=== PATIENT | female | born 1990 ===

== ENCOUNTER 2017-12-08 09:03 | Emergency (ER) | payer BC, OTHER ==
[2017-12-08 09:04] VITALS: BMI 30.7
[2017-12-08 09:14] VITALS: BP 111/59; RESP 16; TEMP 97; O2SAT 100
--- NOTE | 2017-12-08 10:38 | ED PDOC ---
HPI: CCC, URI, Sore Throat Time Seen by Provider: 12/08/17 09:17 Chief Complaint (Nursing): Chest Pain Chief Complaint (Provider): Cough and Chest Pain History Per: Patient History/Exam Limitations: no limitations Onset/Duration Of Symptoms: Days (x5) Current Symptoms Are (Timing): Still Present Additional Complaint(s): 27 year old female with no significant past medical history, who presents to the ED complaining of a cough productive of clear sputum x5 days. States today she also developed mid-sternal chest pain only with coughing which prompted her to visit the ED. Denies chest pain at rest, hemoptysis, shortness of breath, leg pain, and history of DVT or PE. Also denies hormonal therapy. PMD: Non-[facility] Provider Past Medical History Reviewed: Historical Data, Nursing Documentation, Vital Signs Vital Signs: Last Vital Signs Temp 97.0 F L 12/08/17 09:07 Pulse 91 H 12/08/17 09:07 Resp 16 12/08/17 09:07 BP 111/59 L 12/08/17 09:07 Pulse Ox 100 12/08/17 10:41 - Medical History PMH: Gall Bladder Disease, Pancreatitis Denies: Cardia Arrhythmia, CHF, Emphysema, Chronic Kidney Disease - Surgical History Surgical History: Cholecystectomy, - Family History Family History: States: Unknown Family Hx - Home Medications Home Medications: Ambulatory Orders Medication Instructions Recorded Albuterol HFA [Ventolin HFA 90 2 puff IH [id number] PRN #90 puff 12/08/17 mcg/actuation (8 g)] Azithromycin [Zithromax] 250 mg PO DAILY #6 tab 12/08/17 Promethazine DM [Phenergan DM 5 - 10 ml PO Q8 PRN #120 ml 12/08/17 Syrup] - Allergies Allergies/Adverse Reactions: Allergies Allergy/AdvReac Type Severity Reaction Status Date / Time No Known Allergies Allergy Verified 07/29/14 00:14 Review of Systems ROS Statement: Except As Marked, All Systems Reviewed And Found Negative Cardiovascular: Positive for: Chest Pain (when coughing) Respiratory: Positive for: Cough, Sputum (clear). Negative for: Shortness of Breath, Hemoptysis Musculoskeletal: Negative for: Leg Pain Physical Exam - Reviewed Nursing Documentation Reviewed: Yes Vital Signs Reviewed: Yes - Physical Exam Appears: Positive for: Non-toxic, No Acute Distress Head Exam: Positive for: ATRAUMATIC, NORMAL INSPECTION, NORMOCEPHALIC Skin: Positive for: Normal Color, Warm, Dry. Negative for: Rash Eye Exam: Positive for: EOMI, Normal appearance, PERRL ENT: Positive for: Normal ENT Inspection Cardiovascular/Chest: Positive for: Regular Rate, Rhythm. Negative for: Murmur Respiratory: Positive for: Normal Breath Sounds. Negative for: Respiratory Distress Gastrointestinal/Abdominal: Positive for: Normal Exam, Bowel Sounds, Soft. Negative for: Tenderness Extremity: Negative for: Calf Tenderness (b/l) Neurologic/Psych: Positive for: Alert, Oriented (x3) - ECG ECG: Positive for: Interpreted By Me ECG Rhythm: Positive for: Sinus Rhythm. Negative for: ST/T Changes Rate: 62 O2 Sat by Pulse Oximetry: 100 (RA) Pulse Ox Interpretation: Normal Medical Decision Making Medical Decision Making: Time: 09:55 Initial Plan: --Portable CXR --Reevaluation Scribe Attestation: Documented by Wilson Mendosa, acting as a scribe for Travis Sherwood MD. Provider Scribe Attestation: All medical record entries made by the Scribe were at my direction and personally dictated by me. I have reviewed the chart and agree that the record accurately reflects my personal performance of the history, physical exam, medical decision making, and the department course for this patient. I have also personally directed, reviewed, and agree with the discharge instructions and disposition. Disposition - Clinical Impression Clinical Impression: Acute bronchitis - Patient ED Disposition Is Patient to be Admitted: No - Disposition Disposition: Routine/Home Disposition Time: 10:20 Condition: STABLE Prescriptions: Albuterol HFA [Ventolin HFA 90 mcg/actuation (8 g)] 2 puff IH [id number] PRN #90 puff PRN Reason: Cough Azithromycin [Zithromax] 250 mg PO DAILY #6 tab Promethazine DM [Phenergan DM Syrup] 5 - 10 ml PO Q8 PRN #120 ml PRN Reason: Cough Instructions: Acute Bronchitis (ED) Forms: [facility] ([place]), [facility] ED School/Work Excuse
[2017-12-08 10:46] VITALS: PULSE 62
--- NOTE | 2017-12-08 11:27 | RAD ---
HISTORY: cough COMPARISON: Comparison is made with TECHNIQUE: Chest PA and lateral FINDINGS: LUNGS: No active pulmonary disease. PLEURA: No significant pleural effusion identified. No pneumothorax apparent. CARDIOVASCULAR: Normal. OSSEOUS STRUCTURES: No significant abnormalities. VISUALIZED UPPER ABDOMEN: Normal. OTHER FINDINGS: None. IMPRESSION: No radiographic evidence of pneumonia.
== END 2017-12-08 11:07 | disposition home or self-care (01) ==
LOC: H.ER 09:03
DX: J20.9 Acute bronchitis, unspecified (principal)

== ENCOUNTER 2018-04-03 00:25 | Emergency (ER) | payer OTHER ==
[2018-04-03 00:25] VITALS: BMI 30.7
[2018-04-03 00:29] VITALS: RESP 16; TEMP 98.1; O2SAT 99
[2018-04-03] MEDS ORDERED: Alum-Mag Hydrox-Simethicone Susp (30 mL) PO STA (01:30)
[2018-04-03] MEDS ORDERED: Atrop/Hyos/Scop/PhenoB Elixir PO ONE (01:31)
[2018-04-03] MEDS ORDERED: Alum-Mag Hydrox-Simethicone Susp (30 mL) ONE (01:40)
--- NOTE | 2018-04-03 01:42 | ED PDOC ---
HPI: Abdomen Time Seen by Provider: 04/03/18 00:56 Chief Complaint (Nursing): GI Problem Chief Complaint (Provider): GI Problem History Per: Patient History/Exam Limitations: no limitations Onset/Duration Of Symptoms: Days (x3), Intermittent Episodes Current Symptoms Are (Timing): Still Present Additional Complaint(s): 27 year old female presents to the emergency department complaining of intermittent epigastric discomfort, associated with nausea and diarrhea onset three days ago. She notes two episodes of diarrhea yesterday but denies any since. Patient states that her boyfriend recently had similar symptoms. Otherwise: (-) vomiting, (-) fever, (-) melena, (-) hematochezia, (-) recent travel. She reports no history of prior abdominal surgery. PMD: [facility] Past Medical History Reviewed: Historical Data, Nursing Documentation, Vital Signs Vital Signs: Last Vital Signs Temp 98.1 F 04/03/18 00:27 Pulse 83 04/03/18 00:27 Resp 16 04/03/18 00:27 BP 109/70 04/03/18 00:27 Pulse Ox 99 04/03/18 01:53 - Medical History PMH: Gall Bladder Disease, Pancreatitis Denies: Cardia Arrhythmia, CHF, Emphysema, Chronic Kidney Disease - Surgical History Surgical History: Cholecystectomy, - Family History Family History: States: Unknown Family Hx - Social History Current smoker - smoking cessation education provided: No Alcohol: Occasional Drugs: Denies - Home Medications Home Medications: Ambulatory Orders Medication Instructions Recorded Albuterol HFA [Ventolin HFA 90 2 puff IH [id number] PRN #90 puff 12/08/17 mcg/actuation (8 g)] Azithromycin [Zithromax] 250 mg PO DAILY #6 tab 12/08/17 Promethazine DM [Phenergan DM 5 - 10 ml PO Q8 PRN #120 ml 12/08/17 Syrup] Atropine/Hyoscyamine [] 1 tab PO TID PRN #20 tab 04/03/18 Ondansetron ODT [Zofran ODT] 4 mg PO DAILY PRN #20 odt 04/03/18 - Allergies Allergies/Adverse Reactions: Allergies Allergy/AdvReac Type Severity Reaction Status Date / Time No Known Allergies Allergy Verified 07/29/14 00:14 Review of Systems ROS Statement: Except As Marked, All Systems Reviewed And Found Negative Constitutional: Negative for: Fever Gastrointestinal: Positive for: Nausea, Abdominal Pain (epigastric discomfort), Diarrhea. Negative for: Vomiting, Melena, Hematochezia Physical Exam - Reviewed Nursing Documentation Reviewed: Yes Vital Signs Reviewed: Yes - Physical Exam Comments: GENERAL APPEARANCE: Patient is awake, alert, oriented x 3, in no acute distress. SKIN: Warm, dry; (-) cyanosis. EYES: (-) conjunctival pallor, (-) scleral icterus. ENMT: Mucous membranes are moist. NECK: (-) tenderness, (-) stiffness, (-) lymphadenopathy. CHEST AND RESPIRATORY: (-) rales, (-) rhonchi, (-) wheezes; breath sounds equal bilaterally. HEART AND CARDIOVASCULAR: (-) irregularity; (-) murmur, (-) gallop. ABDOMEN AND GI: (-) distention. Bowel sounds active; (+) minimal tenderness in epigastric area, (-) guarding, (-) rebound, (-) palpable masses, (-) CVA tenderness. EXTREMITIES: (-) deformity, (-) edema, (+) distal pulses. NEURO AND PSYCH: Mental status as above; (-) focal findings. - ECG O2 Sat by Pulse Oximetry: 99 (RA) Pulse Ox Interpretation: Normal Medical Decision Making Medical Decision Making: Time: 1:30 Initial Impression: Gastroenteritis Initial Plan: -- 5ml PO --Lidocaine 2% Viscous 15ml PO --Maalox Plus 30ml PO --Zofran 4mg PO Reevaluation: Patient remains awake, alert, oriented x 3 and is laying in bed comfortably. On exam, abdomen is soft and non tender. Advised to follow up with primary care physician in 1-2 days without fail. Advised drink plenty of fluids, BRAT diet, to take medication as prescribed. Return to the emergency room at any time for any new or worsening symptoms. Patient states she fully agrees with and understands discharge instructions. States that she agrees with the plan and disposition. Verbalized and repeated discharge instructions and plan. I have given the patient opportunity to ask any additional questions. Scribe Attestation: Documented by Mariia Faust, acting as a scribe for Erendira Beal PA-C. Provider Scribe Attestation: All medical record entries made by the Scribe were at my direction and personally dictated by me. I have reviewed the chart and agree that the record accurately reflects my personal performance of the history, physical exam, medical decision making, and the department course for this patient. I have also personally directed, reviewed, and agree with the discharge instructions and disposition. Disposition - Clinical Impression Clinical Impression: Gastroenteritis - Patient ED Disposition Is Patient to be Admitted: No Counseled Patient/Family Regarding: Diagnosis, Need For Followup, Rx Given - Disposition Disposition: Routine/Home Disposition Time: 03:00 Condition: IMPROVED Additional Instructions: Thank you for letting us take care of you today. You were treated for gastroenteritis. The emergency medical care you received today was directed at your acute symptoms. If you were prescribed any medication, please fill it and take as directed. It may take several days for your symptoms to resolve. Return to the Emergency Department if your symptoms worsen, do not improve, or if you have any other problems. Please contact your doctor in 2 days for re-evaluation and follow up. Bring any paperwork you were given at discharge with you along with any medications you are taking to your follow up visit. Our treatment cannot replace ongoing medical care by a primary care provider (PCP) outside of the emergency department. Thank you for allowing the [facility] team to be part of your care today. Prescriptions: Atropine/Hyoscyamine [] 1 tab PO TID PRN #20 tab PRN Reason: Dyspepsia Ondansetron ODT [Zofran ODT] 4 mg PO DAILY PRN #20 odt PRN Reason: Nausea/Vomiting Instructions: Viral Gastroenteritis Forms: [facility] ([place])
[2018-04-03 05:25] VITALS: BP 102/57; PULSE 74
== END 2018-04-03 03:35 | disposition home or self-care (01) ==
LOC: H.ER 00:25
DX: K52.9 Noninfective gastroenteritis and colitis, unspecified (principal)

== ENCOUNTER 2018-05-17 12:13 | Emergency (ER) | payer OTHER ==
[2018-05-17 12:13] VITALS: BMI 30.7
[2018-05-17 12:33] VITALS: BP 122/74; PULSE 84; RESP 18; TEMP 98.7; O2SAT 100
--- NOTE | 2018-05-17 12:55 | ED PDOC ---
HPI: Back Time Seen by Provider: 05/17/18 12:41 Chief Complaint (Nursing): Back Pain Chief Complaint (Provider): Back Pain History Per: Patient History/Exam Limitations: no limitations Onset/Duration Of Symptoms: Days (x3) Current Symptoms Are (Timing): Still Present Additional Complaint(s): 28 y/o female presents to the ED with complaints of lower back pain x 3 days. Patient denies fall or trauma. She states she does mild amount of heavy lifting at work daily. No associated bowel or bladder dysfunction. Advil taken has not helped with pain. PMD: None Past Medical History Reviewed: Historical Data, Nursing Documentation, Vital Signs Vital Signs: Last Vital Signs Temp 98.7 F 05/17/18 12:30 Pulse 84 05/17/18 12:30 Resp 18 05/17/18 12:30 BP 122/74 05/17/18 12:30 Pulse Ox 100 05/17/18 12:30 - Medical History PMH: No Chronic Diseases - Surgical History Surgical History: Cholecystectomy, - Family History Family History: States: No Known Family Hx - Living Arrangements Living Arrangements: With Family - Social History Current smoker - smoking cessation education provided: No Alcohol: None Drugs: Denies - Home Medications Home Medications: Ambulatory Orders Medication Instructions Recorded Albuterol HFA [Ventolin HFA 90 2 puff IH [id number] PRN #90 puff 12/08/17 mcg/actuation (8 g)] Azithromycin [Zithromax] 250 mg PO DAILY #6 tab 12/08/17 Promethazine DM [Phenergan DM 5 - 10 ml PO Q8 PRN #120 ml 12/08/17 Syrup] Atropine/Hyoscyamine [] 1 tab PO TID PRN #20 tab 04/03/18 Ondansetron ODT [Zofran ODT] 4 mg PO DAILY PRN #20 odt 04/03/18 Cyclobenzaprine [Cyclobenzaprine 10 mg PO TID PRN #20 tab 05/17/18 HCl] Naproxen [Naprosyn] 500 mg PO BID #20 tab 05/17/18 - Allergies Allergies/Adverse Reactions: Allergies Allergy/AdvReac Type Severity Reaction Status Date / Time No Known Allergies Allergy Verified 05/17/18 12:29 Review of Systems ROS Statement: Except As Marked, All Systems Reviewed And Found Negative Constitutional: Negative for: Fever, Chills Genitourinary Female: Negative for: Dysuria Musculoskeletal: Positive for: Back Pain (low) Physical Exam - Reviewed Nursing Documentation Reviewed: Yes Vital Signs Reviewed: Yes - Physical Exam Appears: Positive for: Well, Non-toxic, No Acute Distress Head Exam: Positive for: ATRAUMATIC, NORMOCEPHALIC Skin: Positive for: Normal Color. Negative for: Rash Eye Exam: Positive for: Normal appearance, EOMI, PERRL ENT: Positive for: Normal ENT Inspection Neck: Positive for: Normal, Painless ROM Cardiovascular/Chest: Positive for: Regular Rate, Rhythm. Negative for: Murmur Respiratory: Positive for: Normal Breath Sounds. Negative for: Respiratory Distress Gastrointestinal/Abdominal: Positive for: Soft. Negative for: Tenderness Back: Positive for: Normal Inspection, Other (midline tenderness along lumbar spine; no step off, negative bilateral straight leg raise). Negative for: L CVA Tenderness, R CVA Tenderness Neurologic/Psych: Positive for: Alert, Oriented (x3), Gait (steady). Negative for: Motor/Sensory Deficits - Laboratory Results Urine POC: Negative Urine dip results: Positive for: Leukocyte Esterase (trace), Blood, Nitrate, Ketones, Glucose, Bilirubin, Protein - ECG O2 Sat by Pulse Oximetry: 100 (RA) Pulse Ox Interpretation: Normal - Other Rad LS Spine X-ray X-Ray: Interpreted by Me, Viewed By Me X-Ray Interpretation: no fx, no dis Medical Decision Making Medical Decision Making: Time: 1253 Impression: 28 y/o female with low back pain Plan: -- ED Urine -- ED Urine Dipstick -- Flexeril 10 mg PO -- Toradol 30 mg IM -- LS Spine AP/LAT XR Trace leuks noted in urine dip, patient denies symptoms of UTI, culture sent. Patient is aware of all diagnostic testing results. All questions answered. Patient states she feels better with meds given in ED. Rx naprosyn and flexeril given. Advised PMD and ortho follow up. Scribe Attestation: Documented by Ileana Noe, acting as a scribe for Eloina Tenorio PA-C. Provider Scribe Attestation: All medical record entries made by the Scribe were at my direction and personally dictated by me. I have reviewed the chart and agree that the record accurately reflects my personal performance of the history, physical exam, medical decision making, and the department course for this patient. I have also personally directed, reviewed, and agree with the discharge instructions and disposition. Disposition - Clinical Impression Clinical Impression: Back strain - Patient ED Disposition Is Patient to be Admitted: No Counseled Patient/Family Regarding: Studies Performed, Diagnosis, Need For Followup, Rx Given - Disposition Referrals: Frederick Hendricks MD [Staff Provider] - Yuan Ramos MD [Staff Provider] - Disposition: Routine/Home Disposition Time: 13:59 Condition: STABLE Additional Instructions: Take rx meds as directed as needed for pain. Avoid heavy lifting. Follow up with primary care doctor or orthopedist [facility]. Prescriptions: Cyclobenzaprine [Cyclobenzaprine HCl] 10 mg PO TID PRN #20 tab PRN Reason: Muscle Spasm Naproxen [Naprosyn] 500 mg PO BID #20 tab Instructions: Muscle Strain (DC), Low Back Pain in Adults, Back Exercises Forms: [facility] ([place]), [facility] ED School/Work Excuse
--- NOTE | 2018-05-17 13:48 | RAD ---
Date of service: 05/17/2018 PROCEDURE: Radiographs of the Lumbar Spine. HISTORY: Pain. No history of recent/ related trauma provided COMPARISON: No prior. FINDINGS: BONES: Normal alignment. No listhesis. No fracture. DISC SPACES: Unremarkable. OTHER FINDINGS: None. IMPRESSION: Unremarkable radiographs of the lumbar spine. Concordant results with the preliminary interpretation rendered by the emergency department physician procedure.
== END 2018-05-17 14:30 | disposition home or self-care (01) ==
LOC: H.ER 12:13
DX: S39.012A Strain of muscle, fascia and tendon of lower back, initial encounter (principal); X50.9XXA Other and unspecified overexertion or strenuous movements or postures, initial encounter; Y99.0 Civilian activity done for income or pay
CPT/HCPCS: 72100; 81025; 87086; 96372; 99283; J1885